=== PATIENT | male | born 1985 | race African-American/Black ===

== ENCOUNTER 2017-05-22 04:34 | Emergency (ER) | payer OTHER ==
[2017-05-22 04:47] VITALS: BP 169/107; PULSE 87; TEMP 98.5; BMI 41.1
[2017-05-22] MEDS ORDERED: ASPIRIN 81 MG CHEWABLE TABLETS PO ONE (05:22)
--- NOTE | 2017-05-22 05:24 | PDOC ---
History of Present Illness - History of Present Illness Initial Comments: 05/22/17 05:18 31 yo M with h/o NIDDM, and asthma who presents with acute onset of chest pain and SOB. Patient reports developing transient episode of SOB 2 hours [employer] awaking him from sleep. Also endorses left sided chest pressure, now gradually improved with no identifiable triggers. Endorses wheezing, now slightly improved with ambulatory Fluticasone and Albuterol. Denies cough, N/V, fevers/ chills, extremity swelling, lightheadedness, weakness, numbness/tingling, jaw or neck pain,, abdominal pain, urinary complaints, diarrhea, constipation. Denies h/o MS, or DVT/PE. Denies tobacco or illicit drug use. <Garrison Flynn - Last Filed: 05/22/17 06:48> <Charlene Hernandez - Last Filed: 05/22/17 20:17> - General Chief Complaint: Asthma Stated Complaint: DIFFICULTY BREATHING Time Seen by Provider: 05/22/17 04:49 Past History - Past Medical History Asthma: Yes - Immunization History Immunization Up to Date: Yes - Suicide/Smoking/Psychosocial Hx Smoking History: Never smoked Have you smoked in the past 12 months: No Information on smoking cessation initiated: No Hx Alcohol Use: No Drug/Substance Use Hx: No Substance Use Type: None Hx Substance Use Treatment: No <Garrison Flynn - Last Filed: 05/22/17 06:48> <Charlene Hernandez - Last Filed: 05/22/17 20:17> - Past Medical History Allergies/Adverse Reactions: Allergies Allergy/AdvReac Type Severity Reaction Status Date / Time No Known Allergies Allergy Verified 05/24/15 00:59 Home Medications: Ambulatory Orders Albuterol Sulfate [Proair Hfa -] 1 - 2 inh PO TID PRN 06/20/14 Fluticasone Propionate [Flovent Diskus] 50 mcg IH DAILY 05/24/15 Prednisone [Deltasone -] 20 mg PO BID 5 Days #10 tablet MDD 2 tab 05/22/17 Review of Systems - Review of Systems Comments:: 05/22/17 05:25 GENERAL/CONSTITUTIONAL: No fever or chills. No weakness. HEAD, EYES, EARS, NOSE AND THROAT: No change in vision. No ear pain or discharge. No sore throat.- CARDIOVASCULAR: + Chest pain RESPIRATORY: + SOB and wheezing. No cough or hemoptysis. GASTROINTESTINAL: No nausea, vomiting, diarrhea or constipation. GENITOURINARY: No dysuria, frequency, or change in urination. MUSCULOSKELETAL: No joint or muscle swelling or pain. No neck or back pain. SKIN: No rash NEUROLOGIC: No headache, vertigo, loss of consciousness, or change in strength/ sensation. ENDOCRINE: No increased thirst. No abnormal weight change HEMATOLOGIC/LYMPHATIC: No anemia, easy bleeding, or history of blood clots. ALLERGIC/IMMUNOLOGIC: No hives or skin allergy. <Garrison Flynn - Last Filed: 05/22/17 06:48> - Review of Systems Constitutional: No: Symptoms Reported, See HPI, Chills, Diaphoresis, Fever, Loss of Appetite, Malaise, Night Sweats, Weakness, Weight Stable, Unintentional Wgt. Loss, Unexplained wgt Loss, Other HEENTM: Yes: Other (puffy face). No: Symptoms Reported, See HPI, Eye Pain, Blurred Vision, Tearing, Recent change in vision, Double Vision, Cataracts, Ear Pain, Ocular Prothesis, Ear Discharge, Nose Pain, Nose Congestion, Tinnitus, Nose Bleeding, Hearing Loss, Throat Pain, Throat Swelling, Mouth Pain, Dental Problems, Difficulty Swallowing, Mouth Swelling Respiratory: No: Symptoms reported, See HPI, Cough, Orthopnea, Shortness of Breath, SOB with Exertion, SOB at Rest, Stridor, Wheezing, Productive cough, Hemoptysis, Other Cardiac (ROS): No: Symptoms Reported, See HPI, Chest Pain, Edema, Irregular Heart Rate, Lightheadedness, Palpitations, Syncope, Chest Tightness, Other ABD/GI: No: Symptoms Reported, See HPI, Abdominal Distended, Abd. Pain w/ defecation, Blood Streaked Bowels, Constipated, Diarrhea, Difficulty Swallowing , Nausea, Poor Appetite, Poor Fluid Intake, Rectal Bleeding, Vomiting, Indigestion, Abdominal cramping, Tarry Stools, Other Musculoskeletal: No: Symptoms Reported, See HPI, Back Pain, Gout, Joint Pain, Joint Swelling, Muscle Pain, Muscle Weakness, Neck Pain, Joint Stiffness, Other Integumentary: No: Symptoms Reported, See HPI, Bruising, Change in Color, Change in Hair/Nails, Dryness, Erythema, Flushing, Lesions, Lumps, Pallor, Pruritus, Rash, Sweating, Other Neurological: No: Symptoms reported, See HPI, Headache, Numbness, Paresthesia, Pre-Existing Deficit, Seizure, Tingling, Tremors, Weakness, Unsteady Gait, Ataxia, Dizziness, Other <Charlene Hernandez - Last Filed: 05/22/17 20:17> *Physical Exam - Vital Signs Last Vital Signs Temp Pulse Resp BP Pulse Ox 98.5 F 87 18 169/107 95 05/22/17 04:46 05/22/17 04:46 05/22/17 04:46 05/22/17 04:46 05/22/17 04:46 - Physical Exam Comments: 05/22/17 05:24 GENERAL: Awake, alert, and fully oriented, in no acute distress HEAD: No signs of trauma, normocephalic, atraumatic EYES: PERRLA, EOMI, sclera anicteric, conjunctiva clear ENT: Hearing grossly normal, nares patent, oropharynx clear without exudates. Moist mucosa NECK: Normal ROM, supple, no lymphadenopathy, JVD, or masses LUNGS: + insp and exp rhonci diffusely. Absent rales. No distress, speaks full sentences. HEART: Regular rate and rhythm, normal S1 and S2, no murmurs, rubs or gallops, peripheral pulses normal and equal bilaterally. EXTREMITIES : Normal inspection, Normal range of motion, no edema. No clubbing or cyanosis. SKIN: Warm, Dry, normal turgor, no rashes or lesions noted. <Garrison Flynn - Last Filed: 05/22/17 06:48> - Vital Signs Last Vital Signs Temp Pulse Resp BP Pulse Ox 98.5 F 87 18 169/107 95 05/22/17 04:46 05/22/17 04:46 05/22/17 04:46 05/22/17 04:46 05/22/17 04:46 <Charlene Hernandez - Last Filed: 05/22/17 20:17> ED Treatment Course - LABORATORY CBC & Chemistry Diagram: 05/22/17 05:35 05/22/17 05:35 - RADIOLOGY Radiology Studies Ordered: Category Date Time Status CXRPORT [CHEST X-RAY PORTABLE*] [RAD] Stat Radiology 05/22/17 05:16 Ordered <Garrison Flynn - Last Filed: 05/22/17 06:48> - LABORATORY CBC & Chemistry Diagram: 05/22/17 05:35 05/22/17 05:35 - ADDITIONAL ORDERS Additional order review: 05/22/17 05:35 RBC 5.54 MCV 77.0 L MCHC 33.2 RDW 15.5 MPV 8.8 Neutrophils % 54.9 Lymphocytes % 35.4 Monocytes % 5.7 Eosinophils % 2.8 Basophils % 1.2 - Medications Given in the ED: ED Medications Discontinued Medications Generic Name Dose Route Start Last Admin Trade Name Freq PRN Reason Stop Dose Admin Albuterol/Ipratropium 1 amp 05/22/17 05:30 05/22/17 06:34 Duoneb - NEB 05/22/17 06:16 1 amp Q15M CUCA Administration Aspirin 81 mg 05/22/17 05:22 05/22/17 05:41 Asa - PO 05/22/17 05:23 81 mg ONCE ONE Administration Magnesium Sulfate 2 gm 05/22/17 06:09 05/22/17 06:34 Magnesium Sulfate IVPB 05/22/17 06:10 2 gm ONCE ONE Administration Prednisone 40 mg 05/22/17 06:07 05/22/17 06:22 Deltasone - PO 05/22/17 06:08 Not Given ONCE ONE Prednisone 60 mg 05/22/17 06:08 05/22/17 06:34 Deltasone - PO 05/22/17 06:09 60 mg ONCE ONE Administration <Charlene Hernandez - Last Filed: 05/22/17 20:17> Medical Decision Making - Medical Decision Making 05/22/17 05:26 31 yo M with h/o NIDDM,obesity, and asthma who presents with transient episode of SOB 2 hours [employer] awaking him from sleep and left sided chest pressure, with no identifiable triggers, and pain non reproducible. Endorses wheezing, now slightly improved with ambulatory Fluticasone and Albuterol. Denies cough, N/V, fevers/chills, extremity swelling,sensory changes, lightheadedness, weakness, abdominal pain, urinary complaints, diarrhea, constipation. Denies h/o MS, or DVT/PE. Arrived 100 % O2 RA. Physical exam notable for inspiratory and expiratory wheezing throughout lung acosta. Patient history and symptoms consistent with acute asthma exacerbation. Although patient is 31 yo, there are multiple risk factors for ACS/MS. Will obtain cardiac labs and evaluation. 05/22/17 05:29 ED Course: CBC, CMP, Trop, Cardiac profile EKG, CXR Duoneb, Prednisone 60 mg x 1, IV MG Sulfate 2 mg 05/22/17 06:11 CXR: Unremarkable EKG: NSR with absent PRISCILLA, STD, or TWI. 05/22/17 06:13 CBC: Unremarkable 05/22/17 06:30 CMP: Unreamrkable 05/22/17 06:40 Respiratory status improved. 05/22/17 06:42 Discharge discussed with patient. Patient advised to f/u with PMD within one week with strict return precautions to the emergency department. Prednisone sent to pharmacy. <Garrison Flynn - Last Filed: 05/22/17 06:48> *DC/Admit/Observation/Transfer - Discharge Dispostion Admit: No - Attestations Physician Attestion: 05/22/17 06:12 I attest to the information provided in this note. <Garrison Flynn - Last Filed: 05/22/17 06:48> <Charlene Hernandez - Last Filed: 05/22/17 20:17> Diagnosis at time of Disposition: Asthma exacerbation Qualifiers: Asthma severity: mild Asthma persistence: intermittent Qualified Code(s): J45.21 - Mild intermittent asthma with (acute) exacerbation - Discharge Dispostion Disposition: HOME Condition at time of disposition: Stable - Prescriptions Prescriptions: Prednisone [Deltasone -] 20 mg PO BID 5 Days #10 tablet MDD 2 tab - Referrals Referrals: Kim Oconnor MD [Primary Care Provider] - - Patient Instructions Printed Discharge Instructions: Asthma -- Adult Additional Instructions: Please return to the emergency department with any new or worsening symptoms or concerns. Please take Prednisone PO for 5 days. Please follow up with PCP within one week. - Post Discharge Activity Forms/Work/School Notes: Back to Work ED Attending (Resident) HPI <Garrison Flynn - Last Filed: 05/22/17 06:48> - History of Present Illness Initial Comments: 05/22/17 20:16 Pt took alleve and woke up with a puffy face. He has no sore throat, no voice change and no SOB or difficulty breathing.; he feels better in the the ER after NSS, benadryl, prednisone. He was observed for serveral hours and he is feeling better. Associated Symptoms: denies: denies symptoms, chest pain, cough, diaphoresis, fever/chills, headaches, loss of appetite, malaise, nausea/vomiting, rash, seizure, shortness of breath, syncope, weakness, other - Attending Attestation I agree with resident's note.: Yes <Charlene Hernandez - Last Filed: 05/22/17 20:17> - General Chief Complaint: Asthma Stated Complaint: DIFFICULTY BREATHING Time Seen by Provider: 05/22/17 04:49
[2017-05-22] MEDS ORDERED: ALBUTEROL SO4 2.5/IPRATROPIUM 0.5 INH SOL 3 ML VIAL.NEB. NEB ONE (05:26)
[2017-05-22] MEDS: ALBUTEROL SO4 2.5/IPRATROPIUM 0.5 INH SOL 3 ML VIAL.NEB. NEB SCH ×4 (05:40→06:34)
[2017-05-22 05:45] LABS: BASOPHIL 1.2 % (0-2.0); EOSINOPHIL 2.8 % (0-4.5); MCH 25.5 pg (25.7-33.7); MCHC 33.2 g/dl (32.0-35.9); MEAN PLT VOLUME 8.8 fl (7.5-11.1); NEUTROPHILS 54.9 % (42.8-82.8); PLATELET COUNT 269 K/MM3 (134-434); RDW 15.5 % (11.9-15.9); WHITE BLOOD COUNT 9.3 K/mm3 (4.0-10.0)
[2017-05-22] MEDS ORDERED: predniSONE 20 MG TABLET (UD) PO ONE ×2 (06:07→06:08)
[2017-05-22] MEDS ORDERED: MAGNESIUM SULF 50% (8.12 MEQ/2 ML-1 GM VIAL) IVPB ONE (06:09)
[2017-05-22 06:13] LABS: ALBUMIN 3.8 g/dl (3.4-5.0); ALK PHOS 98 U/L (45-117); ANION GAP 9 (8-16); BILIRUBIN,TOTAL 0.2 mg/dL (0.2-1.0); CALCIUM 8.6 mg/dL (8.5-10.1); CO2 23 mmol/L (21-32); CREATININE 0.9 mg/dL (0.7-1.3); GLUCOSE,RANDOM 224 mg/dL (74-106); SGOT/AST 17 U/L (15-37); SGPT/ALT 42 U/L (12-78); TOT PROT 7.6 g/dl (6.4-8.2)
[2017-05-22] MEDS ORDERED: ASPIRIN 81 MG CHEWABLE TABLETS ONE (06:16)
[2017-05-22] MEDS ORDERED: predniSONE 20 MG TABLET (UD) ONE (06:26)
[2017-05-22] MEDS ORDERED: MAGNESIUM SULF 50% (8.12 MEQ/2 ML-1 GM VIAL) ONE (06:26)
[2017-05-22 07:32] LABS: CPK 466 IU/L (39-308)
[2017-05-22 07:33] LABS: TROPONIN I < 0.02 ng/ml (0.00-0.05)
--- NOTE | 2017-05-23 15:08 | EKG ---
Test Reason : Blood Pressure : / mmHG Vent. Rate : 086 BPM Atrial Rate : 086 BPM P-R Int : 156 ms QRS Dur : 094 ms QT Int : 362 ms P-R-T Axes : 046 006 033 degrees QTc Int : 433 ms NORMAL SINUS RHYTHM MINIMAL VOLTAGE CRITERIA FOR LVH, MAY BE NORMAL VARIANT BORDERLINE ECG WHEN COMPARED WITH ECG OF 23-MAR-2007 07:04, NO SIGNIFICANT CHANGE WAS FOUND Confirmed by ESSIE GERMAN MD ([id number]) on 05/23/2017 3:08:12 PM Referred By: Confirmed By:ESSIE GERMAN MD
== END 2017-05-22 07:10 | disposition home or self-care (01) ==
LOC: JER 04:34
PROC: 3E0F7GC Introduction of Other Therapeutic Substance into Respiratory Tract, Via Natural or Artificial Opening (ICD-10-PCS; principal; 2017-05-22)
PROC: 3E033GC Introduction of Other Therapeutic Substance into Peripheral Vein, Percutaneous Approach (ICD-10-PCS; 2017-05-22)
DX: J45.21 Mild intermittent asthma with (acute) exacerbation (principal)
CPT/HCPCS: 36415; 71010-TC; 80053; 82550; 82553; 84484; 85025; 93005; 93010; 99282-25

== ENCOUNTER 2018-04-17 10:09 | Emergency (ER) | payer OTHER ==
[2018-04-17 10:31] VITALS: PULSE 78; TEMP 98.2; BMI 41.1
[2018-04-17] MEDS ORDERED: ALBUTEROL SO4 2.5/IPRATROPIUM 0.5 INH SOL 3 ML VIAL.NEB. NEB ONE ×4 (10:42→11:22)
[2018-04-17 11:06] VITALS: BP 155/94
--- NOTE | 2018-04-17 11:46 | PDOC ---
History of Present Illness - General Chief Complaint: Respiratory Stated Complaint: ASTHMA Time Seen by Provider: 04/17/18 10:41 History Source: Patient Exam Limitations: No Limitations - History of Present Illness Initial Comments: 04/17/18 11:40 32 yr male history of asthma presents with chest tight for 2 days cough no fever no wheezing, states he ran out of his inhaler. no intubation history. non smoker, speaking full sentences. Past History - Past Medical History Allergies/Adverse Reactions: Allergies Allergy/AdvReac Type Severity Reaction Status Date / Time No Known Allergies Allergy Verified 04/17/18 10:18 Home Medications: Ambulatory Orders Albuterol Sulfate [Proair Hfa -] 1 - 2 inh PO TID PRN 06/20/14 Albuterol Sulfate Inhaler - [Ventolin HFA Inhaler -] 1 - 2 inh PO Q4H #1 inhaler 04/17/18 Beclomethasone Dipropionate [Qvar] 8.7 gm IH ASDIR 04/17/18 Sitagliptin Phos/Metformin HCl [Janumet 50-1,000 mg Tablet] 1 each PO BID Asthma: Yes - Immunization History Immunization Up to Date: Yes - Suicide/Smoking/Psychosocial Hx Smoking History: Never smoked Have you smoked in the past 12 months: No Hx Alcohol Use: No Drug/Substance Use Hx: No Substance Use Type: None Hx Substance Use Treatment: No Review of Systems - Review of Systems Able to Perform ROS?: Yes Is the patient limited Micronesian proficient: No Constitutional: No: Symptoms Reported HEENTM: No: Symptoms Reported Respiratory: Yes: Symptoms reported, Cough Cardiac (ROS): No: Symptoms Reported ABD/GI: No: Symptoms Reported : No: Symptoms Reported Musculoskeletal: No: Symptoms Reported Integumentary: No: Symptoms Reported *Physical Exam - Vital Signs Last Vital Signs Temp Pulse Resp BP Pulse Ox 98.2 F 78 18 155/94 96 04/17/18 10:21 04/17/18 10:21 04/17/18 10:21 04/17/18 11:05 04/17/18 10:21 - Physical Exam General Appearance: Yes: Nourished, Appropriately Dressed HEENT: positive: EOMI, AKILA Neck: positive: Supple. negative: Tender Respiratory/Chest: positive: Lungs Clear, Normal Breath Sounds, Decreased Breath Sounds. negative: Wheezing Cardiovascular: positive: Regular Rhythm, Regular Rate Gastrointestinal/Abdominal: positive: Normal Bowel Sounds, Soft Musculoskeletal: positive: Normal Inspection Extremity: positive: Normal Capillary Refill, Normal Inspection, Normal Range of Motion Integumentary: positive: Normal Color, Dry, Warm Neurologic: positive: Fully Oriented, Alert, Normal Mood/Affect, Normal Response , Motor Strength 10/15 ED Treatment Course - Medications Given in the ED: ED Medications Discontinued Medications Generic Name Dose Route Start Last Admin Trade Name Daxa PRN Reason Stop Dose Admin Albuterol/Ipratropium 1 amp 04/17/18 10:42 04/17/18 10:47 Duoneb - NEB 04/17/18 10:43 1 amp ONCE ONE Administration Albuterol/Ipratropium 1 amp 04/17/18 11:21 04/17/18 11:27 Duoneb - NEB 04/17/18 11:22 1 amp ONCE ONE Administration Medical Decision Making - Medical Decision Making 04/17/18 11:43 cc: cough chest tightness, no fever no shortness of breath pt ran out if inhaler no intubation or overnight hospitalization decreased BS bilateraly will give duoneb now pt improved after the medication , no wheezing feels better strict follow up with PMD dc inst discussed 04/18/18 16:38 *DC/Admit/Observation/Transfer Diagnosis at time of Disposition: Asthma Qualifiers: Asthma severity: mild Asthma persistence: unspecified Asthma complication type : with acute exacerbation Qualified Code(s): J45.901 - Unspecified asthma with ( acute) exacerbation - Discharge Dispostion Disposition: HOME Condition at time of disposition: Good - Prescriptions Prescriptions: Albuterol Sulfate Inhaler - [Ventolin HFA Inhaler -] 1 - 2 inh PO Q4H #1 inhaler - Referrals Referrals: Kim Oconnor MD [Primary Care Provider] - - Patient Instructions Additional Instructions: drink pleanty of water to stay hydrated use the albuterol inhaler as directed follow with your doctor in 1-2 days return if any worsening symptoms - Post Discharge Activity Forms/Work/School Notes: Back to Work
== END 2018-04-17 11:55 | disposition home or self-care (01) ==
LOC: JERFT 10:09
PROC: 3E0F7GC Introduction of Other Therapeutic Substance into Respiratory Tract, Via Natural or Artificial Opening (ICD-10-PCS; principal; 2018-04-17)
PROC: 3E0F7GC Introduction of Other Therapeutic Substance into Respiratory Tract, Via Natural or Artificial Opening (ICD-10-PCS; 2018-04-17)
DX: J45.901 Unspecified asthma with (acute) exacerbation (principal)
CPT/HCPCS: 99281-25

== ENCOUNTER 2018-05-24 09:50 | Inpatient (IN) | payer OTHER ==
--- NOTE | 2018-05-24 10:32 | PDOC ---
History of Present Illness - General History Source: Patient Exam Limitations: No Limitations <Kristen Bob - Last Filed: 05/24/18 10:29> - General History Source: Care Provider <Zeyad Tellez - Last Filed: 05/24/18 11:42> - General Chief Complaint: Shortness of Breath Stated Complaint: SOB Time Seen by Provider: 05/24/18 10:29 Past History - Past Medical History Asthma: Yes - Immunization History Immunization Up to Date: Yes - Suicide/Smoking/Psychosocial Hx Smoking History: Never smoked Have you smoked in the past 12 months: No Information on smoking cessation initiated: No Hx Alcohol Use: No Drug/Substance Use Hx: No Substance Use Type: None Hx Substance Use Treatment: No <Kristen Bob - Last Filed: 05/24/18 10:29> <Zeyad Tellez - Last Filed: 05/24/18 11:42> - Past Medical History Allergies/Adverse Reactions: Allergies Allergy/AdvReac Type Severity Reaction Status Date / Time No Known Allergies Allergy Verified 05/24/18 10:01 Home Medications: Ambulatory Orders Beclomethasone Dipropionate [Qvar] 8.7 gm IH ASDIR 04/17/18 Sitagliptin Phos/Metformin HCl [Janumet 50-1,000 mg Tablet] 1 each PO BID Albuterol Sulfate Inhaler - [Ventolin HFA Inhaler -] 1 - 2 inh PO Q4H PRN *Physical Exam - Vital Signs Last Vital Signs Temp Pulse Resp BP Pulse Ox 99.0 F 97 H 16 171/80 H 93 L 05/24/18 09:58 05/24/18 09:58 05/24/18 09:58 05/24/18 09:58 05/24/18 09:58 <Kristen Bob - Last Filed: 05/24/18 10:29> - Vital Signs Last Vital Signs Temp Pulse Resp BP Pulse Ox 99.0 F 97 H 16 171/80 H 93 L 05/24/18 09:58 05/24/18 09:58 05/24/18 09:58 05/24/18 09:58 05/24/18 09:58 <Zeyad Tellez - Last Filed: 05/24/18 11:42> Moderate Sedation - Procedure Monitoring Vital Signs: Procedure Monitoring Vital Signs Temperature 99.0 F 05/24/18 09:58 Pulse Rate 97 H 05/24/18 09:58 Respiratory Rate 16 05/24/18 09:58 Blood Pressure 171/80 H 05/24/18 09:58 O2 Sat by Pulse Oximetry (%) 93 L 05/24/18 09:58 <Kristen Bob - Last Filed: 05/24/18 10:29> - Procedure Monitoring Vital Signs: Procedure Monitoring Vital Signs Temperature 99.0 F 05/24/18 09:58 Pulse Rate 97 H 05/24/18 09:58 Respiratory Rate 16 05/24/18 09:58 Blood Pressure 171/80 H 05/24/18 09:58 O2 Sat by Pulse Oximetry (%) 93 L 05/24/18 09:58 <Zeyad Tellez - Last Filed: 05/24/18 11:42> ED Treatment Course - RADIOLOGY Radiology Studies Ordered: Category Date Time Status CHEST PA & LAT [RAD] Stat Radiology 05/24/18 10:40 Ordered - Medications Given in the ED: ED Medications Discontinued Medications Generic Name Dose Route Start Last Admin Trade Name Freq PRN Reason Stop Dose Admin Albuterol/Ipratropium 3 amp 05/24/18 10:40 05/24/18 11:05 Duoneb - NEB 05/24/18 10:41 3 amp ONCE ONE Administration Prednisone 60 mg 05/24/18 10:40 05/24/18 11:05 Deltasone - PO 05/24/18 10:41 60 mg ONCE ONE Administration <Zeyad Tellez - Last Filed: 05/24/18 11:42> *DC/Admit/Observation/Transfer <Kristen Bob - Last Filed: 05/24/18 10:29> <Zeyad Tellez - Last Filed: 05/24/18 11:42> - Referrals Referrals: Kim Oconnor MD [Primary Care Provider] - - Patient Instructions - Post Discharge Activity
[2018-05-24] MEDS ORDERED: ALBUTEROL SO4 2.5/IPRATROPIUM 0.5 INH SOL 3 ML VIAL.NEB. NEB ONE ×4 (10:40→12:16)
[2018-05-24] MEDS ORDERED: predniSONE 20 MG TABLET (UD) PO ONE (10:40)
[2018-05-24] MEDS ORDERED: predniSONE 20 MG TABLET (UD) ONE (11:05)
--- NOTE | 2018-05-24 11:39 | PDOC ---
History of Present Illness - General Chief Complaint: Shortness of Breath Stated Complaint: SOB Time Seen by Provider: 05/24/18 10:29 - History of Present Illness Initial Comments: 05/24/18 11:39 The patient is a 32 year old male, with a significant PMH of asthma and DM who presents to the emergency department with shortness of breath for 1 day. Patient states he used his pump multiple times throughout the night with minimal relief. Patient also admits to a nonproductive cough but denies pain anywehere or nausea and vomiting. Patient has not required hospitalizations or intubations for his asthma. The patient denies chest pain, headache and dizziness. Denies fever, chills, nausea, vomit, diarrhea and constipation. Denies dysuria, frequency, urgency and hematuria. Allergies: NKA Past surgical history: None reported. Social history: No reported alcohol, drug or cigarette use. Past History - Past Medical History Allergies/Adverse Reactions: Allergies Allergy/AdvReac Type Severity Reaction Status Date / Time No Known Allergies Allergy Verified 05/24/18 10:01 Home Medications: Ambulatory Orders Beclomethasone Dipropionate [Qvar] 8.7 gm IH ASDIR 04/17/18 Sitagliptin Phos/Metformin HCl [Janumet 50-1,000 mg Tablet] 1 each PO BID Albuterol Sulfate Inhaler - [Ventolin HFA Inhaler -] 1 - 2 inh PO Q4H PRN Asthma: Yes - Immunization History Immunization Up to Date: Yes - Suicide/Smoking/Psychosocial Hx Smoking History: Never smoked Have you smoked in the past 12 months: No Information on smoking cessation initiated: No Hx Alcohol Use: No Drug/Substance Use Hx: No Substance Use Type: None Hx Substance Use Treatment: No Review of Systems - Review of Systems Comments:: 05/24/18 11:39 GENERAL/CONSTITUTIONAL: No fever or chills. No weakness. HEAD, EYES, EARS, NOSE AND THROAT: No change in vision. No ear pain or discharge. No sore throat. GASTROINTESTINAL: No nausea, vomiting, diarrhea or constipation. GENITOURINARY: No dysuria, frequency, or change in urination. CARDIOVASCULAR: No chest pain or shortness of breath. RESPIRATORY: No cough, wheezing, or hemoptysis. (+) Shortness of breath. MUSCULOSKELETAL: No joint or muscle swelling or pain. No neck or back pain. SKIN: No rash NEUROLOGIC: No headache, vertigo, loss of consciousness, or change in strength/ sensation. ENDOCRINE: No increased thirst. No abnormal weight change. HEMATOLOGIC/LYMPHATIC: No anemia, easy bleeding, or history of blood clots. ALLERGIC/IMMUNOLOGIC: No hives or skin allergy. *Physical Exam - Vital Signs Last Vital Signs Temp Pulse Resp BP Pulse Ox 99.0 F 97 H 16 171/80 H 93 L 05/24/18 09:58 18 09:58 18 09:58 18 09:58 05/24/18 09:58 - Physical Exam Comments: 05/24/18 11:40 GENERAL: Awake, alert, and fully oriented, in no acute distress EYES: PERRLA, EOMI, sclera anicteric, conjunctiva clear ENT: Oropharynx clear without exudates. Moist mucosa NECK: Normal ROM, supple, no lymphadenopathy, JVD, or masses LUNGS: (+) Diffuse wheezing. (+) Fair air movement. No crackles. No increased WOB. HEART: Regular rate and rhythm, normal S1 and S2, no murmurs, rubs or gallops ABDOMEN: Soft, nontender, normoactive bowel sounds. No guarding, no rebound. No masses EXTREMITIES: Normal range of motion, no edema. No cords, erythema, or tenderness. WWP NEUROLOGICAL: Normal speech, cranial nerves intact, negative pronator drift, 5/ 5 strength in all 4 extremities, normal sensation to light touch in all 4 extremities, normal gait SKIN: Warm, Dry, normal turgor, no rashes or lesions noted. Moderate Sedation - Procedure Monitoring Vital Signs: Procedure Monitoring Vital Signs Temperature 99.0 F 05/24/18 09:58 Pulse Rate 97 H 05/24/18 09:58 Respiratory Rate 16 05/24/18 09:58 Blood Pressure 171/80 H 05/24/18 09:58 O2 Sat by Pulse Oximetry (%) 93 L 05/24/18 09:58 ED Treatment Course - LABORATORY CBC & Chemistry Diagram: 05/24/18 14:04 05/24/18 14:04 - RADIOLOGY Radiology Studies Ordered: Category Date Time Status CHEST PA & LAT [RAD] Stat Radiology 05/24/18 10:40 Ordered - Medications Given in the ED: ED Medications Discontinued Medications Generic Name Dose Route Start Last Admin Trade Name Daxa PRN Reason Stop Dose Admin Albuterol/Ipratropium 3 amp 05/24/18 10:40 05/24/18 11:05 Duoneb - NEB 05/24/18 10:41 3 amp ONCE ONE Administration Prednisone 60 mg 05/24/18 10:40 05/24/18 11:05 Deltasone - PO 05/24/18 10:41 60 mg ONCE ONE Administration Medical Decision Making - Medical Decision Making 05/24/18 11:41 32yo M hx asthma presents to the ED with 1 day of SOB, found to be wheezing on exam with fair air movement. Plan to treat with back to back nebs, steroids reassess. No clinical evidence of PE, ACS. 05/24/18 12:01 Improved lung sounds, pt feels moderately improved. Still mild wheezing, will give another albuterol neb 05/24/18 15:09 Patient continues to have wheezing and shortness of breath, although improved. Lung sounds good but has diffuse wheezing right greater than left. Will admit the patient for asthma exacerbation. Case discussed with Dr. Oconnor who accepts the patient for admission. Case discussed in detail with admitting physician including history, physical exam and ancillary studies. Admitting physician has assumed care for the patient, will follow all pending diagnostics and will complete the evaluation and treatment. *DC/Admit/Observation/Transfer Diagnosis at time of Disposition: Asthma exacerbation - Discharge Dispostion Condition at time of disposition: Stable Decision to Admit order: Yes - Referrals Referrals: Kim Oconnor MD [Primary Care Provider] - - Patient Instructions - Post Discharge Activity - Attestations Physician Attestion: 05/24/18 15:11 I, Dr. Zeyad Tellez MD, attest that this document has been prepared under my direction and personally reviewed by me in its entirety. I further attest, that it accurately reflects all work, treatment, procedures and medical decision -making performed by me.
[2018-05-24] MEDS ORDERED: MAGNESIUM SULF 50% (8.12 MEQ/2 ML-1 GM VIAL) IVPB ONE (13:19)
[2018-05-24] MEDS ORDERED: SODIUM CHLORIDE 0.9% 1000 ML INFUS.BAG IV ONE (13:40)
[2018-05-24] MEDS ORDERED: MAGNESIUM 1GM/D5W - 2 GM/200 ML IVPB IVPB ONE (13:51)
[2018-05-24 14:15] LABS: BASO % 0.7 % (0-2.0); EOS % 1.3 % (0-4.5); HEMOGLOBIN 14.7 GM/dL (11.7-16.9); LYMPH % 13.5 % (8-40); MCH 24.6 pg (25.7-33.7); MCHC 31.9 g/dl (32.0-35.9); MEAN PLT VOLUME 8.8 fl (7.5-11.1); MONO % 3.8 % (3.8-10.2); NEUT % 80.7 % (42.8-82.8); PLATELET COUNT 265 K/MM3 (134-434); RBC 5.98 M/mm3 (4.00-5.60); RDW 14.9 % (11.9-15.9)
[2018-05-24 14:48] LABS: ALBUMIN 4.3 g/dl (3.4-5.0); ALK PHOS 103 U/L (45-117); ANION GAP 10 MMOL/L (8-16); BILIRUBIN,TOTAL 0.2 mg/dL (0.2-1); BLOOD UREA NITROGEN 9 mg/dL (7-18); CALCIUM 9.4 mg/dL (8.5-10.1); CHLORIDE 105 mmol/L (98-107); CO2 24 mmol/L (21-32); CREATININE 1.1 mg/dL (0.55-1.3); GLUCOSE,RANDOM 257 mg/dL (74-106); POTASSIUM 4.5 mmol/L (3.5-5.1); SGOT/AST 30 U/L (15-37); SGPT/ALT 48 U/L (13-61); SODIUM 138 mmol/L (136-145); TOT PROT 8.3 g/dl (6.4-8.2)
[2018-05-24] MEDS ORDERED: ALBUTEROL SO4 0.083% IH SOL 2.5 MG/3 ML VIAL.NEB. NEB ONE ×2 (15:08→16:12)
--- NOTE | 2018-05-24 17:07 | HP ---
Admitting History and Physical - Primary Care Physician PCP: Kim Oconnor - Admission Chief Complaint: shortness of breath and wheezing History of Present Illness: progressively worsening dyspnea and wheezing with productive cough for past 2 days to the point where today he could barely walk due to SOB h/o asthma, last er visit 2 months ago, prior to that years ago takes prn albuterol and theoretically qvar, but has not been able to fill his medicine for weeks History Source: Patient Limitations to Obtaining History: No Limitations - Past Medical History Pulmonary: Yes: Asthma Endocrine: Yes: Diabetes Mellitus - Smoking History Smoking history: Never smoked Have you smoked in the past 12 months: No - Alcohol/Substance Use Hx Alcohol Use: No - Social History ADL: Independent History of Recent Travel: No Home Medications - Allergies Allergies/Adverse Reactions: Allergies Allergy/AdvReac Type Severity Reaction Status Date / Time No Known Allergies Allergy Verified 05/24/18 10:01 - Home Medications Home Medications: Ambulatory Orders Beclomethasone Dipropionate [Qvar] 8.7 gm IH ASDIR 04/17/18 Sitagliptin Phos/Metformin HCl [Janumet 50-1,000 mg Tablet] 1 each PO BID Albuterol Sulfate Inhaler - [Ventolin HFA Inhaler -] 1 - 2 inh PO Q4H PRN Family Disease History - Family Disease History Family Disease History: Diabetes: Mother, Heart Disease: Mother Review of Systems - Review of Systems Constitutional: reports: Weakness. denies: Fever, Lethargy, Loss of Appetite Eyes: reports: No Symptoms Neck: reports: No Symptoms Cardiovascular: reports: No Symptoms Respiratory: reports: Cough, Exercise Intolerance, SOB on Exertion, Wheezing. denies: Hemoptysis Gastrointestinal: reports: No Symptoms Genitourinary: reports: No Symptoms Musculoskeletal: reports: No Symptoms Integumentary: reports: No Symptoms Neurological: reports: No Symptoms Hematology/Lymphatic: reports: No Symptoms Psychiatric: reports: No Symptoms Physical Examination Vital Signs: Vital Signs Temperature 98 F 05/24/18 16:02 Pulse Rate 91 H 05/24/18 16:02 Respiratory Rate 20 05/24/18 16:02 Blood Pressure 139/82 05/24/18 16:02 O2 Sat by Pulse Oximetry (%) 98 05/24/18 16:02 Constitutional: Yes: Well Nourished, No Distress, Obese Eyes: Yes: Conjunctiva Clear, EOM Intact HENT: Yes: Normocephalic Neck: Yes: Trachea Midline Cardiovascular: Yes: Regular Rate and Rhythm Respiratory: Yes: Wheezes (diffuse bilateral expiratory) Gastrointestinal: Yes: Normal Bowel Sounds, Soft Musculoskeletal: Yes: WNL Extremities: Yes: WNL Edema: No Peripheral Pulses WNL: Yes Integumentary: Yes: WNL Neurological: Yes: WNL Labs: CBC, BMP 05/24/18 14:04 05/24/18 14:04 Imaging - Results Chest X-ray: Report Reviewed Problem List - Problems (1) Diabetes mellitus Code(s): E11.9 - TYPE 2 DIABETES MELLITUS WITHOUT COMPLICATIONS Qualifiers: Diabetes mellitus type: type 2 Diabetes mellitus prison insulin use: without prison use Diabetes mellitus complication status: without complication Qualified Code(s): E11.9 - Type 2 diabetes mellitus without complications (2) Asthma exacerbation Code(s): J45.901 - UNSPECIFIED ASTHMA WITH (ACUTE) EXACERBATION Qualifiers: Asthma severity: mild Asthma persistence: intermittent Qualified Code(s) : J45.21 - Mild intermittent asthma with (acute) exacerbation Assessment/Plan iv steroids nebulizers o2 as needed GI/DVT prophylaxis
[2018-05-24] MEDS ORDERED: RANITIDINE HCL 150 MG TABLET (FP) PO ONE (17:15)
[2018-05-24] MEDS: INSULIN SLIDING SCALE (NOVOLOG) 1 VIAL SQ SCH ×2 (17:26→22:27)
[2018-05-24] MEDS: methylPREDNISolone NA SUCC 40 MG/1 ML VIAL IVPB SCH (17:33)
[2018-05-24] MEDS ORDERED: FLU VACCINE QUAD 60 MCG/0.5 ML (MDV 18-19) IM ONE (18:45)
[2018-05-24] MEDS ORDERED: PNEUMOC 13-VAL CONJ-DIP CRM/PF 0.5 ML DISP.SYRIN IM ONE (18:45)
[2018-05-24] MEDS ORDERED: PT OWN MED DRAWER 7, Y5N ONE (21:11)
[2018-05-24] MEDS: ALBUTEROL SO4 2.5/IPRATROPIUM 0.5 INH SOL 3 ML VIAL.NEB. NEB PRN (22:40)
[2018-05-24] MEDS: BUDESONIDE/FORMETEROL FUMARATE 160/4.5 mcg INHALER IH SCH (23:01)
[2018-05-25] MEDS: methylPREDNISolone NA SUCC 40 MG/1 ML VIAL IVPB SCH ×3 (01:40→17:27)
[2018-05-25] MEDS: INSULIN SLIDING SCALE (NOVOLOG) 1 VIAL SQ SCH ×4 (06:21→22:33)
[2018-05-25] MEDS: sitaGLIPtin PHOSPHATE 100 MG TABLET (FP) PO SCH (06:22)
[2018-05-25] MEDS: metFORMIN HCL 500 MG TABLET (FP) PO SCH ×2 (06:22→16:32)
[2018-05-25] MEDS: ALBUTEROL SO4 2.5/IPRATROPIUM 0.5 INH SOL 3 ML VIAL.NEB. NEB PRN ×2 (07:30→12:46)
--- NOTE | 2018-05-25 08:36 | PN ---
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
[2018-05-25] MEDS: BUDESONIDE/FORMETEROL FUMARATE 160/4.5 mcg INHALER IH SCH ×2 (09:39→22:33)
[2018-05-25] MEDS: ENOXAPARIN NA (PORCINE) 40 MG/0.4 ML DISP.SYRIN SQ SCH (09:40)
--- NOTE | 2018-05-25 12:51 | EKG ---
Test Reason : Blood Pressure : / mmHG Vent. Rate : 091 BPM Atrial Rate : 091 BPM P-R Int : 170 ms QRS Dur : 092 ms QT Int : 362 ms P-R-T Axes : 057 014 022 degrees QTc Int : 445 ms NORMAL SINUS RHYTHM NORMAL ECG WHEN COMPARED WITH ECG OF 22-MAY-2017 06:21, NO SIGNIFICANT CHANGE WAS FOUND Confirmed by ROBBIE HAWLEY MD ([id number]) on 05/25/2018 12:50:51 PM Referred By: Confirmed By:ROBBIE HAWLEY MD
[2018-05-25] MEDS ORDERED: ALBUTEROL SO4 0.083% IH SOL 2.5 MG/3 ML VIAL.NEB. NEB PRN (14:19)
--- NOTE | 2018-05-25 14:19 | CON.PULM ---
Consult Consult Specialty:: PULMONARY Referred by:: Dr. Hartmann Reason for Consultation:: shortness of breath - History of Present Illness Chief Complaint: shortness of breath History of Present Illness: 32yo male with h/o asthma, DM who was admitted with shortness of breath x 1 day. 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 Reports URI symptoms prior and thought he was catching a cold. No fevers, chills or sweats. Has had asthma since childhood , multiple hospitalizations but none in recent years. Last time he was on prednisone was "years" ago. Maintained on albuterol and Qvar but has not had Qvar recently. Used his albuterol at home without improvement. Does not know his best peak flow, usual trigger is strenuous activity. - History Source History Provided By: Patient, Medical Record Limitations to Obtaining History: No Limitations - Past Medical History Pulmonary: Yes: Asthma Endocrine: Yes: Diabetes Mellitus - Alcohol/Substance Use Hx Alcohol Use: No - Smoking History Smoking history: Never smoked Have you smoked in the past 12 months: No - Social History ADL: Independent History of Recent Travel: No Home Medications - Allergies Allergies/Adverse Reactions: Allergies Allergy/AdvReac Type Severity Reaction Status Date / Time No Known Allergies Allergy Verified 05/24/18 10:01 - Home Medications Home Medications: Ambulatory Orders Beclomethasone Dipropionate [Qvar] 8.7 gm IH ASDIR 04/17/18 Sitagliptin Phos/Metformin HCl [Janumet 50-1,000 mg Tablet] 1 each PO BID Albuterol Sulfate Inhaler - [Ventolin HFA Inhaler -] 1 - 2 inh PO Q4H PRN Family Disease History - Family Disease History Family Disease History: Diabetes: Mother, Heart Disease: Mother Review of Systems - Review of Systems Constitutional: denies: Chills, Fever Eyes: denies: Recent Change in Vision HENT: denies: Nasal Congestion, Throat Pain Neck: denies: Stiffness, Tenderness Cardiovascular: reports: Shortness of Breath. denies: Chest Pain, Palpitations Respiratory: reports: Cough, Exercise Intolerance, Wheezing. denies: Hemoptysis Gastrointestinal: denies: Abdominal Pain, Nausea, Vomiting Genitourinary: denies: Dysuria, Hematuria Neurological: denies: Dizziness, Headache Endocrine: denies: Unexplained Weight Loss Physical Exam Vital Sings: Vital Signs Temperature 98.2 F 05/25/18 13:28 Pulse Rate 114 H 05/25/18 13:28 Respiratory Rate 20 05/25/18 13:28 Blood Pressure 151/77 05/25/18 13:28 O2 Sat by Pulse Oximetry (%) 94 L 05/25/18 10:00 Constitutional: Yes: Calm Eyes: Yes: Conjunctiva Clear, EOM Intact HENT: Yes: Atraumatic, Normocephalic Neck: Yes: Supple, Trachea Midline Cardiovascular: Yes: Regular Rate and Rhythm Respiratory: Yes: Diminished, Wheezes (scattered) ...Clubbing: No Gastrointestinal: Yes: Normal Bowel Sounds, Soft. No: Tenderness Edema: No Neurological: Yes: Alert, Oriented Labs: CBC, BMP 05/24/18 14:04 05/24/18 14:04 Imaging - Results Chest X-ray: Report Reviewed, Image Reviewed (no infiltrates) Problem List - Problems (1) Asthma exacerbation Code(s): J45.901 - UNSPECIFIED ASTHMA WITH (ACUTE) EXACERBATION Qualifiers: Asthma severity: mild Asthma persistence: intermittent Qualified Code(s) : J45.21 - Mild intermittent asthma with (acute) exacerbation (2) Diabetes mellitus Code(s): E11.9 - TYPE 2 DIABETES MELLITUS WITHOUT COMPLICATIONS Qualifiers: Diabetes mellitus type: type 2 Diabetes mellitus half-way insulin use: without half-way use Diabetes mellitus complication status: without complication Qualified Code(s): E11.9 - Type 2 diabetes mellitus without complications Assessment/Plan Acute Asthma Exacerbation DM - IV medrol at current dose - inhaled bronchodilators standing and PRN - will add singulair - O2 to keep Spo2 >90% - monitor peak flow - glucose control while on systemic steroids - outpt PFTs and f/u - DVT prophylaxis Thank you for this consult Markell Ndiaye MD
[2018-05-25] MEDS: ALBUTEROL SO4 2.5/IPRATROPIUM 0.5 INH SOL 3 ML VIAL.NEB. NEB SCH ×2 (16:06→20:50)
[2018-05-25] MEDS ORDERED: INSULIN (NOVOLOG) ASPART 100 UNITS/ML 10ML VIAL ONE (16:31)
[2018-05-25] MEDS: MONTELUKAST NA 10 MG TABLET PO SCH (22:33)
[2018-05-26] MEDS: methylPREDNISolone NA SUCC 40 MG/1 ML VIAL IVPB SCH ×4 (02:28→18:32)
[2018-05-26] MEDS: INSULIN SLIDING SCALE (NOVOLOG) 1 VIAL SQ SCH ×4 (06:34→22:06)
[2018-05-26] MEDS: metFORMIN HCL 500 MG TABLET (FP) PO SCH ×2 (06:34→16:51)
[2018-05-26] MEDS: sitaGLIPtin PHOSPHATE 100 MG TABLET (FP) PO SCH (06:35)
[2018-05-26] MEDS: ALBUTEROL SO4 2.5/IPRATROPIUM 0.5 INH SOL 3 ML VIAL.NEB. NEB SCH ×4 (07:25→20:05)
--- NOTE | 2018-05-26 08:31 | PN ---
Progress Note (short form) - Note Progress Note: feeling better, room air sats are in 90s sugars are high BP is high Vital Signs Period Temp Pulse Resp BP Sys/Luna Pulse Ox Last 24 Hr 97.8 F-99.8 F 90-114 18-22 144-158/70-88 94-94 S1S2 RRR lung bilateral wheezing less, no rales, no rhonchi no edema abd soft nt acute asthma exacerbation NIDDM HTN steroid iv taper nebs start lisinopril add gliburide for sugar control dc planning in am gi/dvt prophylaxis Problem List - Problems (1) Diabetes mellitus Code(s): E11.9 - TYPE 2 DIABETES MELLITUS WITHOUT COMPLICATIONS Qualifiers: Diabetes mellitus type: type 2 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
[2018-05-26] MEDS ORDERED: PT OWN MED DRAWER 7, Y5N ONE ×2 (09:59→16:35)
[2018-05-26] MEDS: ENOXAPARIN NA (PORCINE) 40 MG/0.4 ML DISP.SYRIN SQ SCH (10:58)
[2018-05-26] MEDS: LISINOPRIL 20 MG TABLET (FP) PO SCH (10:58)
[2018-05-26] MEDS: BUDESONIDE/FORMETEROL FUMARATE 160/4.5 mcg INHALER IH SCH ×2 (10:59→22:06)
--- NOTE | 2018-05-26 14:55 | PN ---
Progress Note, Physician History of Present Illness: pulmonary alert,feeling better,less dyspneic,less cough - Current Medication List Current Medications: Active Medications Albuterol Sulfate (Ventolin 0.083% Nebulizer Soln -) 1 amp NEB Q4H PRN PRN Reason: SHORT OF BREATH/WHEEZING Albuterol/Ipratropium (Duoneb -) 1 amp NEB RQID [facility] Last Admin: 05/26/18 11:31 Dose: 1 amp Budesonide/Formoterol Fumarate (Symbicort 160/4.5mcg -) 2 puff IH BID [facility] Last Admin: 05/26/18 10:59 Dose: 2 inh Enoxaparin Sodium (Lovenox -) 40 mg SQ DAILY [facility] Last Admin: 05/26/18 10:58 Dose: 40 mg Glyburide (Diabeta -) 2.5 mg PO BID@0700,1630 [facility] Insulin Aspart (Novolog Vial Sliding Scale -) 1 vial SQ [facility]; Protocol Last Admin: 05/26/18 11:09 Dose: 8 units Lisinopril (Prinivil) 20 mg PO DAILY [facility] Last Admin: 05/26/18 10:58 Dose: 20 mg Metformin HCl (Glucophage -) 1,000 mg PO BID@0700,1630 [facility] Last Admin: 05/26/18 06:34 Dose: 1,000 mg Methylprednisolone Sodium Succinate (Solu-Medrol -) 40 mg IVPB Q8H-IV [facility] Last Admin: 05/26/18 10:57 Dose: 40 mg Montelukast Sodium (Singulair -) 10 mg PO HS [facility] Last Admin: 05/25/18 22:33 Dose: 10 mg Sitagliptin Phosphate (Januvia -) 100 mg PO DAILY@0700 [facility] Last Admin: 05/26/18 06:35 Dose: 100 mg - Objective Vital Signs: Vital Signs Temperature 98.1 F 05/26/18 14:18 Pulse Rate 104 H 05/26/18 14:18 Respiratory Rate 18 05/26/18 14:18 Blood Pressure 123/56 L 05/26/18 14:18 O2 Sat by Pulse Oximetry (%) 94 L 05/25/18 21:00 Constitutional: Yes: Well Nourished, Calm, Obese Eyes: Yes: WNL HENT: Yes: WNL Neck: Yes: WNL Cardiovascular: Yes: Regular Rate and Rhythm, S1, S2 Respiratory: Yes: Wheezes (scattered sourav wheezes) Gastrointestinal: Yes: Normal Bowel Sounds, Soft Extremities: Yes: WNL Peripheral Pulses WNL: No Labs: Assessment/Plan Problem List - Problems (1) Asthma exacerbation Code(s): J45.901 - UNSPECIFIED ASTHMA WITH (ACUTE) EXACERBATION Qualifiers: Asthma severity: mild Asthma persistence: intermittent Qualified Code(s) : J45.21 - Mild intermittent asthma with (acute) exacerbation (2) Diabetes mellitus Code(s): E11.9 - TYPE 2 DIABETES MELLITUS WITHOUT COMPLICATIONS Qualifiers: Diabetes mellitus type: type 2 Diabetes mellitus snf insulin use: without snf use Diabetes mellitus complication status: without complication Qualified Code(s): E11.9 - Type 2 diabetes mellitus without complications Assessment/Plan Acute Asthma Exacerbation DM LIKELY OSAS - IV medrol at current dose - inhaled bronchodilators standing and PRN - singulair - O2 to keep Spo2 >90% - monitor peak flow - glucose control while on systemic steroids - outpt PFTs and f/u - DVT prophylaxis - Sleep screen DR FAIR
[2018-05-26] MEDS: glyBURIDE 2.5 MG TABLET (FP) PO SCH (16:51)
[2018-05-26 17:31] VITALS: BMI 41.2
[2018-05-26] MEDS: MONTELUKAST NA 10 MG TABLET PO SCH (22:06)
[2018-05-27] MEDS: methylPREDNISolone NA SUCC 40 MG/1 ML VIAL IVPB SCH ×4 (01:50→21:31)
[2018-05-27] MEDS ORDERED: PT OWN MED DRAWER 7, Y5N ONE ×2 (06:02→21:01)
[2018-05-27] MEDS: metFORMIN HCL 500 MG TABLET (FP) PO SCH ×2 (06:41→17:03)
[2018-05-27] MEDS: sitaGLIPtin PHOSPHATE 100 MG TABLET (FP) PO SCH (06:41)
[2018-05-27] MEDS: glyBURIDE 2.5 MG TABLET (FP) PO SCH ×2 (06:41→17:03)
[2018-05-27] MEDS: INSULIN SLIDING SCALE (NOVOLOG) 1 VIAL SQ SCH ×4 (06:41→21:31)
[2018-05-27] MEDS: ALBUTEROL SO4 2.5/IPRATROPIUM 0.5 INH SOL 3 ML VIAL.NEB. NEB SCH ×4 (07:20→20:45)
[2018-05-27] MEDS: ENOXAPARIN NA (PORCINE) 40 MG/0.4 ML DISP.SYRIN SQ SCH (09:14)
[2018-05-27] MEDS: LISINOPRIL 20 MG TABLET (FP) PO SCH (09:14)
[2018-05-27] MEDS: BUDESONIDE/FORMETEROL FUMARATE 160/4.5 mcg INHALER IH SCH ×2 (09:14→21:31)
[2018-05-27] MEDS ORDERED: INSULIN (NOVOLOG) ASPART 100 UNITS/ML 10ML VIAL ONE (11:10)
--- NOTE | 2018-05-27 11:37 | PN ---
Progress Note, Physician History of Present Illness: pulmonary alert,feeling better,less dyspneic. sleep screen -sleep apnea - Current Medication List Current Medications: Active Medications Albuterol Sulfate (Ventolin 0.083% Nebulizer Soln -) 1 amp NEB Q4H PRN PRN Reason: SHORT OF BREATH/WHEEZING Albuterol/Ipratropium (Duoneb -) 1 amp NEB RQID [facility] Last Admin: 05/27/18 11:27 Dose: 1 amp Budesonide/Formoterol Fumarate (Symbicort 160/4.5mcg -) 2 puff IH BID [facility] Last Admin: 05/27/18 09:14 Dose: 2 puff Enoxaparin Sodium (Lovenox -) 40 mg SQ DAILY [facility] Last Admin: 05/27/18 09:14 Dose: 40 mg Glyburide (Diabeta -) 2.5 mg PO BID@0700,1630 [facility] Last Admin: 05/27/18 06:41 Dose: 2.5 mg Insulin Aspart (Novolog Vial Sliding Scale -) 1 vial SQ [facility]; Protocol Last Admin: 05/27/18 11:12 Dose: 6 units Lisinopril (Prinivil) 20 mg PO DAILY [facility] Last Admin: 05/27/18 09:14 Dose: 20 mg Metformin HCl (Glucophage -) 1,000 mg PO BID@0700,1630 [facility] Last Admin: 05/27/18 06:41 Dose: 1,000 mg Methylprednisolone Sodium Succinate (Solu-Medrol -) 40 mg IVPB Q8H-IV [facility] Last Admin: 05/27/18 09:14 Dose: 40 mg Montelukast Sodium (Singulair -) 10 mg PO HS [facility] Last Admin: 05/26/18 22:06 Dose: 10 mg Sitagliptin Phosphate (Januvia -) 100 mg PO DAILY@0700 [facility] Last Admin: 05/27/18 06:41 Dose: 100 mg - Objective Vital Signs: Vital Signs Temperature 98.1 F 05/27/18 08:36 Pulse Rate 98 H 05/27/18 08:36 Respiratory Rate 16 05/27/18 08:36 Blood Pressure 150/70 05/27/18 08:36 O2 Sat by Pulse Oximetry (%) 94 L 05/27/18 09:00 Constitutional: Yes: Well Nourished, Calm Eyes: Yes: WNL HENT: Yes: WNL Neck: Yes: WNL Cardiovascular: Yes: Regular Rate and Rhythm, S1, S2 Respiratory: Yes: Wheezes (few scattered wheezes) Gastrointestinal: Yes: Normal Bowel Sounds, Soft Extremities: Yes: WNL Edema: No Labs: CBC, BMP Assessment/Plan Problem List - Problems (1) Asthma exacerbation Code(s): J45.901 - UNSPECIFIED ASTHMA WITH (ACUTE) EXACERBATION Qualifiers: Asthma severity: mild Asthma persistence: intermittent Qualified Code(s) : J45.21 - Mild intermittent asthma with (acute) exacerbation (2) Diabetes mellitus Code(s): E11.9 - TYPE 2 DIABETES MELLITUS WITHOUT COMPLICATIONS Qualifiers: Diabetes mellitus type: type 2 Diabetes mellitus 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
--- NOTE | 2018-05-27 12:54 | PN ---
Progress Note (short form) - Note Progress Note: c/o mild diarrhea no abd pain no dizziness vs stable Vital Signs Period Temp Pulse Resp BP Sys/Luna Pulse Ox Last 24 Hr 98.1 F-98.4 F 88-116 16-20 123-154/56-84 94-94 Heent nad neck supple lungs coarse sourav heart no change ext no edema abd soft non tender asthma better continue taper steroids htn stable diarrhea if he has diarrhea will do the stool c diff advised to drink more water
[2018-05-27] MEDS: MONTELUKAST NA 10 MG TABLET PO SCH (21:31)
[2018-05-28] MEDS ORDERED: PT OWN MED DRAWER 7, Y5N ONE ×4 (05:46→16:17)
[2018-05-28] MEDS: sitaGLIPtin PHOSPHATE 100 MG TABLET (FP) PO SCH (06:29)
[2018-05-28] MEDS: glyBURIDE 2.5 MG TABLET (FP) PO SCH ×2 (06:29→16:53)
[2018-05-28] MEDS: metFORMIN HCL 500 MG TABLET (FP) PO SCH ×2 (06:29→16:52)
[2018-05-28] MEDS: INSULIN SLIDING SCALE (NOVOLOG) 1 VIAL SQ SCH ×4 (06:30→21:17)
[2018-05-28] MEDS ORDERED: INSULIN (NOVOLOG) ASPART 100 UNITS/ML 10ML VIAL ONE ×3 (06:33→20:54)
[2018-05-28] MEDS: ALBUTEROL SO4 2.5/IPRATROPIUM 0.5 INH SOL 3 ML VIAL.NEB. NEB SCH ×4 (07:15→20:40)
--- NOTE | 2018-05-28 10:03 | PN ---
Progress Note (short form) - Note Progress Note: c/o mild diarrhea no abd pain no dizziness vs stable Vital Signs CBC, BMP 05/24/18 14:04 05/24/18 14:04 Vital Signs Period Temp Pulse Resp BP Sys/Luna Pulse Ox Last 24 Hr 98.1 F-98.5 F 81-110 16-22 117-150/64-93 94 Heent nad neck supple lungs coarse sourav heart no change ext no edema abd soft non tender asthma better continue taper steroids htn stable diarrhea specimen sent stool c diff advised to drink more water
[2018-05-28] MEDS: ENOXAPARIN NA (PORCINE) 40 MG/0.4 ML DISP.SYRIN SQ SCH (10:22)
[2018-05-28] MEDS: LISINOPRIL 20 MG TABLET (FP) PO SCH (10:22)
[2018-05-28] MEDS: methylPREDNISolone NA SUCC 40 MG/1 ML VIAL IVPB SCH ×2 (10:23→21:17)
[2018-05-28] MEDS: BUDESONIDE/FORMETEROL FUMARATE 160/4.5 mcg INHALER IH SCH ×2 (10:25→21:21)
--- NOTE | 2018-05-28 13:17 | PN ---
Progress Note, Physician History of Present Illness: pulmonary alert,feeling better,less dyspneic,oob-chair - Current Medication List Current Medications: Active Medications Albuterol Sulfate (Ventolin 0.083% Nebulizer Soln -) 1 amp NEB Q4H PRN PRN Reason: SHORT OF BREATH/WHEEZING Albuterol/Ipratropium (Duoneb -) 1 amp NEB RQID [facility] Last Admin: 05/28/18 11:00 Dose: 1 amp Budesonide/Formoterol Fumarate (Symbicort 160/4.5mcg -) 2 puff IH BID [facility] Last Admin: 05/28/18 10:25 Dose: 2 puff Enoxaparin Sodium (Lovenox -) 40 mg SQ DAILY [facility] Last Admin: 05/28/18 10:22 Dose: 40 mg Glyburide (Diabeta -) 2.5 mg PO BID@0700,1630 [facility] Last Admin: 05/28/18 06:29 Dose: 2.5 mg Insulin Aspart (Novolog Vial Sliding Scale -) 1 vial SQ [facility]; Protocol Last Admin: 05/28/18 11:18 Dose: 4 units Lisinopril (Prinivil) 20 mg PO DAILY [facility] Last Admin: 05/28/18 10:22 Dose: 20 mg Metformin HCl (Glucophage -) 1,000 mg PO BID@0700,1630 [facility] Last Admin: 05/28/18 06:29 Dose: 1,000 mg Methylprednisolone Sodium Succinate (Solu-Medrol -) 40 mg IVPB BID [facility] Last Admin: 05/28/18 10:23 Dose: 40 mg Montelukast Sodium (Singulair -) 10 mg PO HS [facility] Last Admin: 05/27/18 21:31 Dose: 10 mg Sitagliptin Phosphate (Januvia -) 100 mg PO DAILY@0700 [facility] Last Admin: 05/28/18 06:29 Dose: 100 mg - Objective Vital Signs: Vital Signs Temperature 98.2 F 05/28/18 08:22 Pulse Rate 90 05/28/18 08:22 Respiratory Rate 16 05/28/18 08:22 Blood Pressure 140/66 05/28/18 08:22 O2 Sat by Pulse Oximetry (%) 96 05/28/18 09:00 Constitutional: Yes: Well Nourished, Calm Eyes: Yes: WNL HENT: Yes: WNL Neck: Yes: WNL Cardiovascular: Yes: Regular Rate and Rhythm, S1, S2 Respiratory: Yes: Wheezes (few scatterd sourav wheezes) Gastrointestinal: Yes: Normal Bowel Sounds, Soft Extremities: Yes: WNL Edema: No Labs: CBC, BMP 05/24/18 14:04 05/24/18 14:04 Assessment/Plan Problem List - Problems (1) Asthma exacerbation Code(s): J45.901 - UNSPECIFIED ASTHMA WITH (ACUTE) EXACERBATION Qualifiers: Asthma severity: mild Asthma persistence: intermittent Qualified Code(s) : J45.21 - Mild intermittent asthma with (acute) exacerbation (2) Diabetes mellitus Code(s): E11.9 - TYPE 2 DIABETES MELLITUS WITHOUT COMPLICATIONS Qualifiers: Diabetes mellitus type: type 2 Diabetes mellitus nursing home insulin use: without nursing home use Diabetes mellitus complication status: without complication Qualified Code(s): E11.9 - Type 2 diabetes mellitus without complications Assessment/Plan Acute Asthma Exacerbation DM - prednisone in am if condition continues to improve - inhaled bronchodilators standing and PRN - singulair - O2 to keep Spo2 >90% - monitor peak flow - glucose control while on systemic steroids - outpt PFTs and f/u - DVT prophylaxis DR FAIR
[2018-05-28] MEDS: MONTELUKAST NA 10 MG TABLET PO SCH (21:17)
[2018-05-29] MEDS ORDERED: PT OWN MED DRAWER 7, Y5N ONE ×2 (05:55→09:38)
[2018-05-29] MEDS: INSULIN SLIDING SCALE (NOVOLOG) 1 VIAL SQ SCH (06:29)
[2018-05-29 06:30] VITALS: TEMP 98.3
[2018-05-29] MEDS: sitaGLIPtin PHOSPHATE 100 MG TABLET (FP) PO SCH (06:30)
[2018-05-29] MEDS: metFORMIN HCL 500 MG TABLET (FP) PO SCH (06:30)
[2018-05-29] MEDS: glyBURIDE 2.5 MG TABLET (FP) PO SCH (06:30)
[2018-05-29] MEDS: ALBUTEROL SO4 2.5/IPRATROPIUM 0.5 INH SOL 3 ML VIAL.NEB. NEB SCH (07:15)
[2018-05-29 08:22] VITALS: BP 138/77; PULSE 109
--- NOTE | 2018-05-29 08:55 | DS ---
Physical Examination Vital Signs: Vital Signs Temperature 98.3 F 05/29/18 08:21 Pulse Rate 109 H 05/29/18 08:21 Respiratory Rate 20 05/29/18 08:21 Blood Pressure 138/77 05/29/18 08:21 O2 Sat by Pulse Oximetry (%) 95 05/28/18 21:00 Constitutional: Yes: No Distress, Calm, Obese Eyes: Yes: EOM Intact HENT: Yes: Normocephalic Neck: Yes: Trachea Midline Cardiovascular: Yes: Regular Rate and Rhythm Respiratory: Yes: CTA Bilaterally Gastrointestinal: Yes: Normal Bowel Sounds, Soft Edema: No Labs: CBC, BMP 05/24/18 14:04 05/24/18 14:04 Discharge Summary Reason For Visit: EXACERBATION OF ASTHMA Current Active Problems Asthma exacerbation (Acute) Diabetes mellitus (Acute) Hospital Course: admitted for acute asthma exacerbation better with iv steroids diabetes meds were adjusted for increased sugars added lisinopril to control HTN needs to f/up as outpt for maintenance Condition: Stable - Instructions Diet, Activity, Other Instructions: f/up with this week Referrals: Kim Oconnor MD [Primary Care Provider] - Disposition: HOME - Home Medications Comprehensive Discharge Medication List: Ambulatory Orders Sitagliptin Phos/Metformin HCl [Janumet 50-1,000 mg Tablet] 1 each PO BID Albuterol Sulfate Inhaler - [Ventolin HFA Inhaler -] 1 - 2 inh PO Q4H PRN Albuterol 0.083% Nebulizer Anitra [Ventolin 0.083% Nebulizer Soln -] 1 amp NEB Q4H PRN #60 amp 05/29/18 Budesonide/Formeterol Fumarate [SYMBICORT 160/4.5mcg -] 2 puff IH BID #1 inhaler 05/29/18 Glyburide [Micronase -] 2.5 mg PO BID@0700,1630 #60 tablet 05/29/18 Lisinopril [Prinivil] 20 mg PO DAILY #30 tablet 05/29/18 Methylprednisolone [Medrol Dose Joseph] 4 mg PO ASDIR #21 tablet 05/29/18
[2018-05-29] MEDS: BUDESONIDE/FORMETEROL FUMARATE 160/4.5 mcg INHALER IH SCH (09:39)
[2018-05-29] MEDS: LISINOPRIL 20 MG TABLET (FP) PO SCH (09:40)
[2018-05-29] MEDS: methylPREDNISolone NA SUCC 40 MG/1 ML VIAL IVPB SCH (09:40)
[2018-05-29] MEDS: ENOXAPARIN NA (PORCINE) 40 MG/0.4 ML DISP.SYRIN SQ SCH (09:40)
== END 2018-05-29 10:27 | disposition home or self-care (01) | DRG 202 ==
LOC: JER 09:50 → JERBED 15:11 → J6S 16:55
PROVIDERS: ADMIT Internal Medicine; ATTEND Internal Medicine
DX: J45.21 Mild intermittent asthma with (acute) exacerbation (principal); Z68.41 Body mass index [BMI] 40.0-44.9, adult; E11.9 Type 2 diabetes mellitus without complications; Z79.84 Long term (current) use of oral hypoglycemic drugs; E66.9 Obesity, unspecified; R19.7 Diarrhea, unspecified
CPT/HCPCS: 36415; 71046-TC-FY; 80053; 82962; 85025; 87324; 87449; 87804; 90670; 90688; 93005; 93010; 94150; 94640; 99283-25; G0008; G0009; J7030

== ENCOUNTER 2021-01-10 19:19 | Emergency (ER) | payer OTHER ==
[2021-01-10 19:33] VITALS: BP 163/91; PULSE 90; TEMP 98.7; BMI 36.1
[2021-01-10] MEDS ORDERED: ALBUTEROL SO4 2.5/IPRATROPIUM 0.5 INH SOL 3 ML VIAL.NEB. NEB ONE ×2 (20:07→20:44)
[2021-01-10] MEDS ORDERED: predniSONE 20 MG TABLET (UD) PO ONE (20:10)
[2021-01-10] MEDS ORDERED: predniSONE 20 MG TABLET (UD) ONE (20:14)
[2021-01-10] MEDS: ALBUTEROL SO4 2.5/IPRATROPIUM 0.5 INH SOL 3 ML VIAL.NEB. NEB SCH ×4 (20:16→21:42)
[2021-01-10] MEDS ORDERED: MONTELUKAST NA 5 MG TAB.CHEW PO ONE (21:29)
[2021-01-10] MEDS ORDERED: TERBUTALINE SULFATE 1 MG/1 ML VIAL SQ ONE (21:41)
== END 2021-01-10 22:09 | disposition home or self-care (01) ==
LOC: JER 19:19
PROC: 3E0F7GC Introduction of Other Therapeutic Substance into Respiratory Tract, Via Natural or Artificial Opening (ICD-10-PCS; principal; 2021-01-10)
DX: J45.901 Unspecified asthma with (acute) exacerbation (principal)
CPT/HCPCS: 99284-25

== ENCOUNTER 2024-11-01 19:20 | Emergency (ER) | payer OTHER ==
[2024-11-01 19:28] VITALS: BP 151/82; PULSE 94; RESP 18; TEMP 98.7; BMI 37.2
[2024-11-01] MEDS ORDERED: ALBUTEROL SO4 2.5/IPRATROPIUM 0.5 INH SOL 3 ML VIAL.NEB. NEB ONE ×2 (19:42→20:05)
[2024-11-01] MEDS: ALBUTEROL SO4 2.5/IPRATROPIUM 0.5 INH SOL 3 ML VIAL.NEB. NEB SCH (20:04)
[2024-11-01] MEDS ORDERED: predniSONE 20 MG TABLET (UD) ONE (20:06)
[2024-11-01] MEDS: predniSONE 20 MG TABLET (UD) PO ONE (20:13)
[2024-11-01] MEDS ORDERED: ALBUTEROL SO4 0.083% IH SOL 2.5 MG/3 ML VIAL.NEB. NEB ONE (21:36)
[2024-11-01] MEDS: ALBUTEROL SO4 0.083% IH SOL 2.5 MG/3 ML VIAL.NEB. NEB SCH (21:39)
== END 2024-11-01 22:49 | disposition home or self-care (01) ==
LOC: JER 19:20
PROC: 3E0F7GC Introduction of Other Therapeutic Substance into Respiratory Tract, Via Natural or Artificial Opening (ICD-10-PCS; principal; 2024-11-01)
PROC: 3E0F7GC Introduction of Other Therapeutic Substance into Respiratory Tract, Via Natural or Artificial Opening (ICD-10-PCS; 2024-11-01)
DX: J45.901 Unspecified asthma with (acute) exacerbation (principal); R06.02 Shortness of breath; R05.9 Cough, unspecified; R07.89 Other chest pain
CPT/HCPCS: 71046-TC-FY; 99284-25